=== PATIENT | female | born 1945 | race Caucasian/White ===

== ENCOUNTER 2017-03-28 13:51 | Outpatient (CLI) | payer MEDICARE, BC ==
[2017-03-28 15:12] LABS: #Eosinphils 0.4 thou/uL (0.0-0.7); #Lymphocytes 2.1 thou/uL (1.20-3.40); #Monocytes 0.6 thou/uL (0.11-0.59); %Basophils 0.8 % (0.0-1.0); %Eosinophils 7.6 % (0.0-10.0); %Lymphocytes 41.7 % (21.0-51.0); %Monocytes 10.7 % (0.0-10.0); %Neutrophils 39.3 % (42.0-75.0); Hemoglobin 12.6 g/dL (12.0-16.0); Mean Corpuscular Hemoglobin 28.4 pg (27.0-31.0); Mean Corpuscular Volume 86.1 fl (81.0-99.0); Mean Platelet Volume 7.9 fL (7.4-10.4); Platelet Count 217 thou/uL (130-400); RBC Distribution Width 13.8 % (11.5-14.5); Red Blood Cell (RBC) Count 4.43 mill/uL (4.20-5.40); White Blood Cell (WBC) Count 5.1 thou/uL (4.8-10.8)
[2017-03-28 15:34] LABS: Anion Gap 13 mmol/L (10-20); BUN (Urea Nitrogen) 15 mg/dL (9.8-20.1); Calc. Creatinine Clearance 0 mL/min (70-130); Calcium 10.6 mg/dL (7.8-10.44); Carbon Dioxide 24 mmol/L (23-31); Chloride 108 mmol/L (98-107); Estimated GFR-MDRD 68; Glucose 146 mg/dL (80-115); Potassium 4.2 mmol/L (3.5-5.1); Sodium 141 mmol/L (136-145)
--- NOTE | 2017-04-04 19:37 | EKG ---
Test Reason : Blood Pressure : / mmHG Vent. Rate : 078 BPM Atrial Rate : 078 BPM P-R Int : 156 ms QRS Dur : 098 ms QT Int : 390 ms P-R-T Axes : 039 007 040 degrees QTc Int : 444 ms Normal sinus rhythm Possible Inferior infarct , age undetermined Anterior infarct , age undetermined Abnormal ECG When compared with ECG of 09-DEC-2015 13:31, Anterior infarct is now Present No significant change was found Confirmed by MARIO RAMIRES (2) on 04/04/2017 7:37:40 PM Referred By: KYLE Confirmed By:MARIO RAMIRES
== END 2017-03-28 13:52 | disposition home or self-care (01) ==
LOC: LABBT 13:51
PROVIDERS: ATTEND Orthopaedic Surgery
DX: Z01.818 Encounter for other preprocedural examination (principal); M75.101 Unspecified rotator cuff tear or rupture of right shoulder, not specified as traumatic
CPT/HCPCS: 80048; 85025; 93005; 93010

== ENCOUNTER 2017-04-05 05:52 | Day surgery (SDC) | payer MEDICARE, BC ==
[2017-03-28 14:16] VITALS: BMI 24.3
[2017-04-05] MEDS ORDERED: Fentanyl 100 MCG/2 ML VIAL ONE ×2 (06:26→07:16)
[2017-04-05] MEDS ORDERED: Midazolam HCl 2 mg/2 ml Vial ONE (06:26)
[2017-04-05] MEDS ORDERED: Ropivacaine 0.2% HCl/PF 20 ML ONE (06:27)
[2017-04-05] MEDS ORDERED: CEFAZOLIN/Water 2 GM/20 ML SYRINGE ONE (06:42)
[2017-04-05] MEDS ORDERED: Lidocaine 4% Topical Sol 50 ML BOT ONE (07:15)
[2017-04-05] MEDS ORDERED: Ketorolac Tromethamine 30 MG/ML VIAL IVP PRN (07:19)
[2017-04-05] MEDS ORDERED: HYDROcodone/Acetaminophen 10/325 mg Tablet PO PRN ×2 (07:19)
[2017-04-05] MEDS ORDERED: traMADol HCl 50 MG TAB PO PRN ×2 (07:19)
[2017-04-05] MEDS ORDERED: Promethazine HCl 25 MG/ML VIAL IM PRN (07:19)
[2017-04-05] MEDS ORDERED: Zolpidem Tartrate 5 MG TAB PO PRN (07:19)
[2017-04-05] MEDS ORDERED: Ropivacaine 0.2% 550 ML 550 ML NERVE BLCK SCH (07:19)
[2017-04-05] MEDS ORDERED: Ondansetron HCl/PF 4 MG/2 ML Vial IVP PRN (07:19)
[2017-04-05] MEDS ORDERED: Fentanyl 100 MCG/2 ML VIAL IV PRN (07:20)
[2017-04-05] MEDS ORDERED: Promethazine HCl 25 MG/ML VIAL ONE (08:39)
--- NOTE | 2017-04-05 08:47 | OP ---
DATE OF PROCEDURE: 04/05/2017 PREOPERATIVE DIAGNOSIS: Rotator cuff tear, right shoulder. POSTOPERATIVE DIAGNOSES: Rotator cuff tear, right shoulder. PROCEDURE: Arthroscopic subacromial decompression and rotator cuff repair. SURGEON: Sumeet Taylor M.D. ANESTHESIA: General. BLOOD LOSS: Minimal. SPECIMEN: None. DRAINS: None. COMPLICATIONS: None. ECHO TECHNICIAN: None. PROCEDURE: The patient was taken to the operating room where general anesthesia was induced. She wa s placed in left lateral decubitus position. Right arm was placed in 15 pounds of traction. Scope w as placed in the glenohumeral joint. She did have some biceps tendonitis, but this appeared to be mi ld. There was a full-thickness rotator cuff tear. There was really no significant glenohumeral arth ritis, expected labral tearing for this age was encountered, it was not debrided. The scope was plac ed in subacromial bursa. A generous bursectomy was performed. CA ligament was taken down. Anterior inferior acromioplasty was performed using a bur. Hemostasis was obtained. The rotator cuff tear w as easily identified. I freshened up the greater tuberosity with a bur, freshened up the margins of the rotator cuff tear with a shaver. I placed a single corkscrew suture anchor through the cancellou s bone, passed sutures through the rotator cuff with a good watertight repair and then reinforced thi s with a double row type repair. Shoulder was then drained. Portals closed with nylon suture and st erile dressings applied. There were no complications.
[2017-04-05] MEDS ORDERED: Ondansetron HCl/PF 4 MG/2 ML Vial ONE (09:16)
[2017-04-05] MEDS ORDERED: Scopolamine 1.5 mg/72 hour Patch ONE (09:16)
[2017-04-05] MEDS ORDERED: Ondansetron ODT 4 MG TAB ONE (10:35)
== END 2017-04-05 10:45 | disposition home or self-care (01) ==
LOC: SDC 05:52
PROVIDERS: ATTEND Orthopaedic Surgery
PROC: 0LQ14ZZ Repair Right Shoulder Tendon, Percutaneous Endoscopic Approach (ICD-10-PCS; principal; 2017-04-05)
PROC: 0RNJ4ZZ Release Right Shoulder Joint, Percutaneous Endoscopic Approach (ICD-10-PCS; 2017-04-05)
DX: M75.121 Complete rotator cuff tear or rupture of right shoulder, not specified as traumatic (principal); E11.9 Type 2 diabetes mellitus without complications; Z87.442 Personal history of urinary calculi; R25.1 Tremor, unspecified; Z79.84 Long term (current) use of oral hypoglycemic drugs; Z79.82 Long term (current) use of aspirin; Z79.890 Hormone replacement therapy; Z79.899 Other long term (current) drug therapy; Z88.0 Allergy status to penicillin; Z91.018 Allergy to other foods; Z98.42 Cataract extraction status, left eye; Z98.41 Cataract extraction status, right eye; Z96.1 Presence of intraocular lens; Z90.710 Acquired absence of both cervix and uterus; Z90.49 Acquired absence of other specified parts of digestive tract; Z98.890 Other specified postprocedural states
CPT/HCPCS: 29826; 29827; 96374; 97139; A4306; C1713; G8984; G8985; G8986; J2001; J2250; J2405; J2550; J2795; J3010; Q0162

== ENCOUNTER 2018-01-16 13:31 | Outpatient (CLI) | payer MEDICARE, BC | END 2018-01-16 13:32 | disposition home or self-care (01) | LOC: BICMAMMO 13:31 | PROVIDERS: ATTEND Internal Medicine | DX: Z12.31 Encounter for screening mammogram for malignant neoplasm of breast (principal); R92.1 Mammographic calcification found on diagnostic imaging of breast | CPT/HCPCS: 77063; 77067 ==